=== PATIENT | female | born 1970 | race Caucasian/White ===

== ENCOUNTER → 2016-07-31 | Outpatient (CLI) | payer OTHER ==
[2016-07-31 12:23] LABS: BASO % 0.3 %; BASO ABS # 0.02 K/uL (0-0.2); COMPLETE YES; HEMATOCRIT 41.1 % (37-47); IG% 0.5 %; LYMPH % 20.6 %; LYMPH ABS # 1.62 K/uL (1.2-3.4); MEAN CELL VOLUME 91.3 fL (80-100); MEAN CORPUSCULAR HGB CONC 32.8 g/dl (32-36); MEAN PLATELET VOLUME 11.5 fL (7.4-10.4); MONO % 8.9 %; NEUT % 68.7 %; PLATELET COUNT 190 K/uL (130-400); WHITE BLOOD COUNT 7.86 K/uL (4.8-10.8)
[2016-07-31 12:39] LABS: ALT/SGPT 20 U/L (12-78); AST/SGOT 15 U/L (15-37); BLOOD UREA NITROGEN 11 mg/dl (7-18); BUN/CREATININE RATIO 13.8 (10-20); CALCIUM 8.5 mg/dl (8.5-10.1); CARBON DIOXIDE 29 mmol/L (21-32); CHLORIDE 106 mmol/L (98-107); CREATININE 0.78 mg/dl (0.60-1.20); GLUCOSE 80 mg/dl (70-99); SODIUM 141 mmol/L (136-145)
[2016-07-31 12:51] LABS: ALB/GLOB RATIO 1.1 (0.9-2); ALKALINE PHOSPHATASE 57 U/L (45-117)
== END | disposition home or self-care (01) ==
LOC: C.LABBFT 08:28
PROVIDERS: ATTEND Internal Medicine
DX: R00.2 Palpitations (principal)

== ENCOUNTER 2018-11-24 10:24 | Observation (INO) ==
--- NOTE | 2018-11-14 12:23 | Anesthesiology Consultation ---
Date of Service November 14, 2018 Assessment & Plan (1) Encounter for pre-operative examination: - Check test AM DOS - Cardio: 10/19/16: minimally symptomatic and infrequent SVT per event monitor review. "I think this is a benign phenomenon which is longstanding in nature produces fairly mild symptoms." No difference in symptoms with beta jan so patient was titrated off. T/C re-initiation of beta jan or antiarrhythmic is progression of symptoms (per patient, no recent issues/symptoms per RN interview 10/2018). - Patient not seen at PAT. Remote hx of minimally symptomatic, infrequent SVT. At anesthesiologist discretion AM DOS if repeat EKG needed based on evaluation/exam. Chart Review Chart Review: Acceptable Risk for Surgery and Patient NOT seen in Pre Admission Testing History Surgery Operation Date: 11/24/18 11:30 Proposed Procedures p L4-L5 Discectomy - Saud Seo DO Height/Weight Height: 5 ft 4 in Weight: 72.575 kg Allergies Allergy/AdvReac Type Severity Reaction Status Date / Time codeine Allergy Intermediate Gastrointestinal Verified 11/13/18 11:18 Upset ergotamine [From Ergostat] Allergy Intermediate Vomiting Verified 11/13/18 11:18 Sulfa (Sulfonamide Allergy Mild Rash Verified 11/13/18 11:18 Antibiotics) Medications Home Medications Medication Instructions Recorded Confirmed Last Taken mometasone 1 applic TOPICAL DAILY PRN 07/25/18 11/13/18 08/08/18 pantoprazole [Protonix] 40 mg PO QAM 07/25/18 11/13/18 08/31/18 acetaminophen [Tylenol Arthritis 1,300 mg PO Q12H 08/12/18 11/13/18 09/01/18 07:30 Pain] ranitidine HCl 150 mg PO BID 08/26/18 11/13/18 08/31/18 gabapentin 300 mg capsule 300 mg PO HS #30 cap 10/15/18 11/13/18 Unknown Past Medical History Medical History Left lumbar radiculopathy Mitral valve prolapse BORDERLINE PROLAPSE WITH MILD MR PER 2017 ECHO Anemia GERD (gastroesophageal reflux disease) Migraines PSVT (paroxysmal supraventricular tachycardia) HX INFREQUENT EPISODES; NO RECENT ISSUES Psoriatic arthritis Sciatica Past Family History Family History Father Family hx colonic polyps Other No family history of adverse response to anesthesia Past Surgical History Surgical History History of colonoscopy History of esophagogastroduodenoscopy (EGD) History of wisdom tooth extraction Social History Smoking Status: Never smoker Do You Dip or Chew Tobacco: No Hx Alcohol Use: No Hx Substance Use: No substance use type: does not use Testing Laboratory Results 11/12/18 WBC 10.47 H/H 12.8/40.4 PLATELETS 188 SODIUM 140 POTASSIUM 3.7 CHLORIDE 106 CO2 27 BUN 11 CREATININE 0.74 GLUCOSE 88 Electrocardiogram Date: 10/19/16 SB at 56bpm. NS TWA. Chest X-Ray Date: 08/18/18 No acute processes of the chest. Echocardiogram Date: 08/03/16 EF 55-60%. No RWMA. Borderline prolapse of the posterior mitral leaflet. Trace to mild TR. Other Testing Event monitor: 08/02/16-08/31/2016: NSR, PVC's, PAC's, symptomatic PSVT (longest was 23 beats in length).
--- NOTE | 2018-11-21 14:15 | History and Physical Report ---
DATE OF ADMISSION: 11/24/2018 CHIEF COMPLAINT: Back and left lower extremity difficulty and working diagnosis of disc herniation. HISTORY OF PRESENT ILLNESS: She has significant back pain, leg pain, can only sit for 20 second. She cannot ride an automobile. She has herniation in the left hand side that causes significant nerve root entrapment. She is going for elective surgery. PAST SURGICAL HISTORY: Negative. MEDICAL HISTORY: GI disturbance, ulceration. Ulceration getting resolved. ALLERGIES: SULFA, CODEINE. CURRENT MEDICATIONS: Prilosec, Tylenol. FAMILY HISTORY: Carcinoma. SOCIAL HISTORY: She is . No alcohol, tobacco. REVIEW OF SYSTEMS: Twelve-system review, positive for weakness and cramping. No fever, sweats, chills. She does have fatigue, some chest pain, palpitation. No asthma, wheezing. No nausea, vomiting. No urgency, frequency. She has easy bruisability, immune deficiency. PHYSICAL EXAMINATION: GENERAL: She is 5 feet 4 inches, 160. She is in distress. She has back pain, buttock and lower extremity difficulty. Mentation normal. VITAL SIGNS: Blood pressure 130/80, pulse 80, respirations 16. HEENT: Essentially normal. RESPIRATORY: Normal inhalation. Normal exhalation. No wheezing or rhonchi. CARDIOVASCULAR: Normal S1, S2, no S3. LUNGS: Clear as stated. ABDOMEN: Soft, nontender. MUSCULOSKELETAL: She has pain with straight leg raising. She has weakness in lower extremity. She has pain with flexion and extension. She has numbness as well. IMAGES: Demonstrated disc herniation, lumbar spine, L4-L5. IMPRESSION: Disc herniation, lumbar spine with nerve root entrapment and weakness. PLAN: Includes a lumbar spine discectomy, L4-L5.
[~2018-11-24 10:24] MED LIST: CEFAZOLIN 2000MG 2,000 MG/15 ML SYR IV SCH; LR 15ML/HR IV SCH; SODIUM CHLORIDE 0.9% 1,000 ML IV SCH
[2018-11-24] MEDS ORDERED: MIDAZOLAM HCL 1 MG/ML 2ML VIAL ONE (10:33)
[2018-11-24] MEDS ORDERED: fentaNYL citrate 100 MCG/2 ML VIAL ONE ×2 (10:33→14:06)
[2018-11-24] MEDS ORDERED: NEOSTIGMINE METHYLSULFATE 5 MG/5 ML SYR ONE (10:34)
[2018-11-24] MEDS ORDERED: ROCURONIUM BROMIDE 10 MG/ML 5 ML VIAL ONE (10:34)
[2018-11-24] MEDS ORDERED: ONDANSETRON INJ 2 MG/ML 2 ML VIAL ONE (10:34)
[2018-11-24] MEDS ORDERED: DEXAMETHASONE SOD INJ 4 MG/ML VIAL ONE (10:34)
[2018-11-24] MEDS ORDERED: LIDOCAINE HCL 2% 2 ML VIAL/AMP(20MG/ML) INFIL ONE (10:34)
[2018-11-24] MEDS ORDERED: PROPOFOL IV EMULSION 10 MG/ML 20 ML VIAL IV ONE (10:34)
[2018-11-24] MEDS ORDERED: GLYCOPYRROLATE 0.2 MG/ML VIAL ONE (10:34)
[2018-11-24] MEDS ORDERED: ATROPINE SULFATE 0.1 MG/ML 10ML SYR IV PRN (11:40)
[2018-11-24] MEDS ORDERED: ePHEDrine sulfate 50 MG/ML AMP IV PRN (11:40)
[2018-11-24] MEDS ORDERED: SUCCINYLCHOLINE CHLORIDE 20 MG/ML 10 ML VIAL ONE (12:16)
[2018-11-24] MEDS ORDERED: BUPIVACAINE/EPINEPHRINE 0.5% MPF 1:200,000 30 ML VIAL ONE ×2 (12:40→12:41)
[2018-11-24] MEDS ORDERED: VANCOMYCIN HCL 1000MG/20ML VIAL ONE (12:40)
[2018-11-24] MEDS ORDERED: BACITRACIN INJ 50,000 UNIT VIAL ONE (12:40)
[2018-11-24] MEDS ORDERED: GELATIN SPONGE SZ 100 ONE (12:40)
[2018-11-24] MEDS ORDERED: THROMBIN FOR SOLN 20000 UNIT KIT ONE (12:40)
--- NOTE | 2018-11-24 12:55 | History & Physical Bridge Note ---
Date of Service November 24, 2018 History & Physical Bridge Note I have examined the patient, reviewed the History & Physical and in the interval since the performance of the History & Physical I have noted the following changes of clinical significance: no changes noted
--- NOTE | 2018-11-24 14:17 | Post Operative Brief Note ---
Immediate Post Op Note v1 Date of Surgery November 24, 2018 Pre & Post Diagnosis Operation Date: 11/24/18 11:50 Pre-Op Diagnosis: Degenerative Disc, Disc Herniation Post-Op Diagnosis: Degenerative Disc, Disc Herniation Procedure Operation Date: 11/24/18 11:50 Actual Procedures p L4-L5 Discectomy(Not Applicable) - Saud Seo DO Surgeon Saud Seo DO Right Of Way Manager imelda Estimated Blood Loss 50 Findings Consistent with Post-Op Diagnosis Drains Hemovac Drain (dual hemovac) Anesthesia Type General Disposition Accompanied Patient To Recovery: Yes Overlapping Procedure I was present for: the critical portions of procedure. (the entire procedure)
[2018-11-24] MEDS: HYDROmorphone INJ 1 MG/ML SYRINGE IV PRN ×4 (14:29→14:44)
--- NOTE | 2018-11-24 14:50 | Fluoroscopy Report ---
FL spine 1V any level CLINICAL HISTORY: L4-L5 DISCECTOMY COMPARISON STUDY: Lumbar spine 06/10/2018. FLUOROSCOPY TIME: 5 seconds. FINDINGS: Single fluoroscopic spot image of the lower lumbar spine demonstrates surgical instruments posterior to the L4-5 level. IMPRESSION: Fluoroscopy provided for L4-L5 discectomy. Electronically signed by: Claudio Martinez M.D. 11/24/2018 2:49 PM
--- NOTE | 2018-11-24 15:06 | Anesthesiology Progress Note ---
Date of Service November 24, 2018 Anesthesia Post Procedure Vital Signs Vital Signs: Temp Pulse Resp BP Pulse Ox 11/24/18 15:00 36.4 C L 73 15 133/91 100 11/24/18 14:50 36.7 C 64 21 110/71 100 11/24/18 14:40 36.7 C 78 23 112/72 100 11/24/18 14:30 36.7 C 93 H 15 125/69 100 11/24/18 14:20 36.7 C 100 H 13 123/63 100 11/24/18 11:01 36.6 C 69 16 145/92 H 99 Pain Intensity Left Leg: Pain Intensity: 5 Transfer of Care Handoff Completed per policy Notes Mental Status: alert / awake / arousable and participated in evaluation Patient Amnestic to Procedure: Yes Nausea / Vomiting: adequately controlled Pain: adequately controlled Airway Patency, RR, SpO2: stable & adequate BP & HR: stable & adequate Hydration State: stable & adequate Anesthetic Complications: no major complications apparent and Pt Satisfied with anesthetic care
[2018-11-24] MEDS ORDERED: MAGNESIUM HYDROXIDE SUSP 30 ML UDC PO PRN (15:38)
[2018-11-24] MEDS ORDERED: OXYCODONE HCL IR 5 MG TAB (IMMEDIATE RELEASE) PO PRN (15:38)
[2018-11-24] MEDS ORDERED: ONDANSETRON INJ 2 MG/ML 2 ML VIAL IV PRN (15:38)
[2018-11-24] MEDS ORDERED: HYDROmorphone INJ 1 MG/ML SYRINGE IV PRN ×2 (15:38)
[2018-11-24] MEDS ORDERED: OXYCODONE HCL IR 5 MG TAB (IMMEDIATE RELEASE) ONE (15:43)
[2018-11-24] MEDS: OXYCODONE HCL IR 5 MG TAB (IMMEDIATE RELEASE) PO PRN ×2 (19:20→23:23)
[2018-11-24] MEDS: SODIUM CHLORIDE 0.9% 1000ML 1,000 ML IV SCH (20:06)
[2018-11-24] MEDS ORDERED: COUGH DROP (SUGAR FREE) LOZ 24 LOZ/1 BOX BUCCAL PRN (20:21)
[2018-11-24] MEDS: CEFAZOLIN 2000MG 2,000 MG/15 ML SYR IV SCH (20:31)
[2018-11-24] MEDS: DOCUSATE SODIUM 100 MG CAP PO SCH (20:32)
[2018-11-24] MEDS ORDERED: GABAPENTIN 300 MG CAP PO SCH (21:00)
[2018-11-25] MEDS: CEFAZOLIN 2000MG 2,000 MG/15 ML SYR IV SCH ×2 (04:54→13:03)
[2018-11-25] MEDS: OXYCODONE HCL IR 5 MG TAB (IMMEDIATE RELEASE) PO PRN ×3 (04:54→13:18)
--- NOTE | 2018-11-25 07:32 | Anesthesiology Progress Note ---
Date of Service November 25, 2018 Anesthesia Post Procedure Vital Signs Vital Signs: Temp Pulse Resp BP Pulse Ox 11/25/18 07:14 36.5 C 53 L 16 120/71 100 11/25/18 02:38 36.6 C 53 L 16 112/68 11/24/18 23:31 36.5 C 64 16 120/73 100 11/24/18 18:43 36.5 C 60 16 116/70 11/24/18 17:25 36.5 C 57 L 16 126/72 11/24/18 16:25 36.3 C L 61 16 125/78 11/24/18 15:55 36.4 C L 56 L 16 118/69 11/24/18 15:25 36.7 C 62 16 120/74 11/24/18 15:10 36.4 C L 67 18 119/70 11/24/18 15:00 36.4 C L 73 15 133/91 11/24/18 14:50 36.7 C 64 21 110/71 11/24/18 14:40 36.7 C 78 23 112/72 11/24/18 14:30 36.7 C 93 H 15 125/69 11/24/18 14:20 36.7 C 100 H 13 123/63 11/24/18 11:01 36.6 C 69 16 145/92 H 99 Notes Mental Status: alert / awake / arousable and participated in evaluation Nausea / Vomiting: adequately controlled Pain: adequately controlled Airway Patency, RR, SpO2: stable & adequate BP & HR: stable & adequate Hydration State: stable & adequate
--- NOTE | 2018-11-25 07:56 | Operative Report ---
DATE OF OPERATION: 11/24/2018 PREOPERATIVE DIAGNOSIS: Disc herniation, lumbar spine L4-L5. POSTOPERATIVE DIAGNOSIS: Disc herniation, lumbar spine L4-L5. PROCEDURE: Lumbar spine diskectomy, foraminotomy, partial facetectomy, and small laminotomy, L4-L5, left. SURGEON: Saud Seo DO BOLTING MACHINE OPERATOR: Jae Ron PA-C. COMPLICATIONS: Zero. BLOOD LOSS: 50 mL. DESCRIPTION OF PROCEDURE: The patient was identified in the preop holding area prior to be taken back to the operating room. She was brought to the OR, successful general intubated anesthetic provided, placed prone, scrubbed, prepped and draped sterile. We made a skin incision, fascial incision. We marked it with the C-arm guidance. We came down on the L4-L5 interval, lumbar spine. I took off part of the lamina above, foraminotomy below, partial laminotomy below as well. I came out underneath the facet joint. I took off ligamentum flavum and completed the foraminotomy. I could find the isolated nerve root. I was able to retract that in a medial direction off the left hand side. I incised the disc with a 15 scalpel blade, pituitary rongeurs of various sizes, probed for any type of free fragments, none to be found. I was pleased with the decompression. It was very visible, the amount of compression on the associated nerve root. Then we irrigated, placed some Gelfoam over the dural structures, placed some vancomycin powder. Closed fascia to fascia with #1 Vicryl suture, 2-0 on subcuticular layer, 3-0 on the skin. Sterile dressings applied. The patient returned to PACU stable. No apparent complications. Sponge and needle count correct. No implants required. I attest to the content of the Intraoperative Record and any orders documented therein. Any exception s are noted below.
[2018-11-25] MEDS: DOCUSATE SODIUM 100 MG CAP PO SCH (08:52)
[2018-11-25] MEDS: SODIUM CHLORIDE 0.9% 1000ML 1,000 ML IV SCH (08:53)
[2018-11-25] MEDS ORDERED: PANTOprazole 40 MG TAB PO SCH (09:00)
--- NOTE | 2018-11-25 12:50 | Discharge Summary ---
Postop lumbar spine surgery. She is improved, stable. Still has some lower extremity difficulty on left hand side. I believe that will recover. She has no chest pain or shortness of breath. She is taking p.o. ASSESSMENT: Status post lumbar spine discectomy. PLAN: She will be discharged home later today, improved stable condition. She has prescriptions on her chart. Followup appointment, instructions, precautions, education provided.
[2018-11-26] MEDS ORDERED: BISACODYL 5 MG TABEC PO PRN (06:00)
== END 2018-11-25 14:18 | disposition home or self-care (01) ==
LOC: 3E 10:24 → ASU 10:24